=== PATIENT | male | born 2000 | race Caucasian/White ===

== ENCOUNTER 2020-09-08 12:03 | Outpatient (REF) | payer BC, SELFPAY | END 2020-09-08 12:04 | disposition home or self-care (01) | LOC: HO.HMGCLDS 12:03 | PROVIDERS: Visit Provider Internal Medicine | DX: Z20.828 Contact with and (suspected) exposure to other viral communicable diseases (principal) | CPT/HCPCS: C9803; U0003 ==

== ENCOUNTER 2025-01-04 05:03 | Emergency (ER) | payer OTHER, SELFPAY ==
--- NOTE | 2025-01-04 | ECG_ITS ---
Test Reason : CHEST PRESSURE Blood Pressure : */* mmHG Vent. Rate : 94 BPM Atrial Rate : 94 BPM P-R Int : 130 ms QRS Dur : 96 ms QT Int : 338 ms P-R-T Axes : 49 69 29 degrees QTcB Int : 422 ms Normal sinus rhythm Normal ECG No previous ECGs available Referred By: Generic ED Physician Electronically Signed By: CONSTANTINE GRAY MD
[2025-01-04 05:13] VITALS: BP 154/78; PULSE 97; RESP 17; TEMP 37.2; O2SAT 98; BMI 28.0
[2025-01-04 05:36] LABS: MANUAL DIFF FLAG NO
[2025-01-04 05:38] LABS: Basophils Percent Auto 0.4 % (0-2); Eosinophils Absolute Auto 0.1 X10*3/uL (0.0-0.4); Eosinophils Percent Auto 1.1 % (0-4); Hematocrit 45.6 % (42.0-52.0); Hemoglobin 16.6 g/dl (14.0-18.0); Imm Gran Abs Auto 0.02 X10*3/uL (0.00-0.03); Imm Gran Pct Auto 0.3 % (0.0-0.4); Lymphocytes Absolute Auto 2.2 X10*3/uL (1.2-4.9); Lymphocytes Percent Auto 27.4 % (20-40); Mean Corpuscular HGB Conc 36.4 g/dl (31.0-36.0); Mean Corpuscular Hemoglobin 30.5 pg (27.0-33.0); Mean Corpuscular Volume 83.7 fL (80.0-98.0); Mean Platelet Volume 10.7 fL (9.4-12.4); Monocytes Absolute Auto 0.8 X10*3/uL (0.1-1.2); Neutrophils Absolute Auto 4.8 x10*3/uL (2.0-8.3); Neutrophils Percent Auto 60.8 % (45-73); Platelet Count 218 X10*3/uL (160-400); Red Blood Count 5.45 X10*6/uL (4.60-5.80); Red Cell Distribution Width 11.9 % (11.0-16.0); White Blood Count 7.9 X10*3/uL (4.8-10.8)
[2025-01-04 05:54] LABS: Alkaline Phosphatase 69 U/L (39-117); Anion Gap 14 (12-20); Aspartate Amino Transferase 34 U/L (5-37); Bilirubin Total 1.1 mg/dL (0.0-1.0); Blood Urea Nitrogen 11 mg/dL (9-16); Calcium 10.1 mg/dL (8.4-10.2); Carbon Dioxide 21 mmol/L (22-29); Chloride 108 mmol/L (96-108); Creatinine Clr Calc Pharmacy 160.8; Estimated Glomerular Filt Rate > 60; Glucose Random 106 mg/dL (60-115); Potassium 3.9 mmol/L (3.3-5.1); Sodium 139 mmol/L (135-145)
[2025-01-04 05:57] LABS: Troponin-I High Sensitivity < 2.7 ng/L (<3.5-35.0)
[2025-01-04 06:08] LABS: Alanine Aminotransferase 48 U/L (0-40)
--- NOTE | 2025-01-04 09:09 | ED_ITS ---
HPI - Anxiety General Chief Complaint: Anxiety Stated Complaint: anxiety attack few days/feeling chest pressure now Time Seen by Provider: 01/04/25 08:42 Source: patient and family Mode of arrival: ambulatory Limitations: no limitations History of Present Illness ED Provider: Jess Hanson APRN HPI narrative: 24-year-old male with no known medical history presents the ER with complaints of feeling anxious since Monday. Patient reports that he is a senior inpatient nursing aide at [employer] and has been feeling very stressed with his semester ending and finals approaching as well as taking his NCLEX exam. Patient reports that he has had intermittent symptoms of chest tightness, palpitations, hand and feet tingling. He denies any history of anxiety. He is not currently taking any anxiety medications. He denies any associated depression, SI, HI. Patient reports he drinks alcohol 2-3 times weekly. Denies any substance use or tobacco use. Denies any caffeine use. No supplement use. Related Data Previous Rx's ?Medication ?Instructions ?Recorded hydroxyzine HCl 25 mg tablet 25 mg PO QID PRN anxiety #30 tabs 01/04/25 Allergies Allergy/AdvReac Type Severity Reaction Status Date / Time peanut Allergy Anaphylaxis Verified 01/04/25 05:15 tree nut Allergy Anaphylaxis Verified 01/04/25 05:15 Review of Systems 2 Review of Systems: Yes all other systems are reviewed and are negative Constitutional: Constitutional: Reports no additional constitutional complaints, Denies body ache(s), Denies chills, Denies fever(s), Denies headache(s) and Denies weakness Eyes: Eyes: Reports no additional eye complaints and Denies change in vision ENT: Reports system reviewed and no additional complaints, except as documented, Denies dizziness, Denies headache(s), Denies nasal congestion, Denies nasal discharge and Denies neck pain Cardiovascular: Cardiovascular: Reports no additional cardiovascular complaints, Reports chest pain, Denies leg edema, Reports palpitations and Denies dyspnea Respiratory: Respiratory: Reports no additional respiratory complaints, Denies cough and Denies dyspnea Gastrointestinal: Gastrointestinal: Reports no additional gastrointestinal complaints, Denies abdominal pain, Denies diarrhea, Denies nausea and Denies vomiting Genitourinary: Genitourinary: Denies urinary incontinence Musculoskeletal: Musculoskeletal: Reports no additional musculoskeletal complaints, Denies back pain, Denies arthralgias, Denies joint swelling, Denies neck pain, Reports numbness and Reports tingling Integumentary/Breasts: Skin/Breast: Reports system reviewed and no additional complaints, except as docu and Denies rash Neurologic: Reports system reviewed and no additional complaints, except as documented, Denies Abnormal speech present, Denies dizziness, Denies headache(s), Reports numbness, Reports tingling and Denies weakness Psychiatric: Psychiatric: Reports anxiety, Denies depression, Denies homicidal ideation and Denies suicidal ideation Endocrine: Endocrine: Reports palpitations PMFSH Past Medical History Attestation statement: The following information was validated with the patient. Source: old records reviewed and nursing notes reviewed Social History Social History Advance Directives: No Advance Directives Information Provided: Yes Do you have a plan to hurt others: No Plan Physical Exam 2 Vital Signs: Vital Signs: Last Vital Signs Temp 97 F 01/04/25 10:37 Pulse 83 01/04/25 10:37 Resp 12 01/04/25 10:37 BP 150/105 H 01/04/25 10:37 Pulse Ox 97 01/04/25 10:37 O2 Del Method Room Air 01/04/25 05:13 BMI result Body Mass Index 28.0 Const: General: cooperative, healthy appearing, comfortable and no acute distress Orientation/consciousness: patient oriented x3 Limitations: no limitations HEENT: Head: Yes normal to inspection Ears: hearing grossly normal bilaterally General nose exam: Normal external nose present Face and sinus: Yes normal facial exam Mouth: Normal oral and palatal mucosa present Throat: Yes posterior oropharynx normal Eyes: General: appearance normal, both eyes and all related structures P upils: Equal, round and reactive pupils present Neck: Neck: Yes normal visual inspection Chest: Chest palpation & inspection: normal inspection of the chest Resp: Effort & Inspection: normal respiratory effort Auscultation: clear to auscultation bilaterally Cardio: Rate: regular rate Rhythm: regular rhythm Peripheral pulses: P eripheral pulses 2+ throughout GI: Inspection: Yes normal to inspection Palpation (GI): Soft to palpation and nontender Auscultation: normal bowel sounds Back/Spine/Pelvis: Thoracic/Lumbar Spine: thoracic and lumbar spine normal to inspection Skin: General skin exam: no rashes or lesions noted Neuro: General: patient oriented x3, no focal motor deficits and normal sensation to monofilament Cranial nerves: Yes Equal, round and reactive pupils present Cognition (Neuro): normal cognition Speech: No Abnormal speech present Gait exam (Neuro): Normal gait present Motor exam (neuro): 5/5 motor strength present throughout Extrem: General: Yes normal to inspection Medical Decision Making Medical Decision Making [facility] Narrative: This is a 24-year-old male who is previously healthy who has multiple life stressors who presents with several days of chest tightness palpitations and numbness/tingling in his hands and feet. No other complaints. Vitals are stable. Exam is benign Will obtain labs and EKG Differential Diagnosis Differential Diagnoses: The differential diagnosis associated with the presentation includes Adjustment disorder, anxiety Electrolyte abnormality, ACS, thyroiditis Admission/Observation Consideration of admission/observation: Escalation of care including admission/observation considered Lab Data [facility] Lab Attestation statement: I reviewed the patient's lab results. 01/04/25 05:30 01/04/25 05:30 Labs: Lab Results 01/04/25 Range/Units 05:30 WBC 7.9 (4.8-10.8) X10*3/uL RBC 5.45 (4.60-5.80) X10*6/uL Hgb 16.6 (14.0-18.0) g/dl Hct 45.6 (42.0-52.0) % MCV 83.7 (80.0-98.0) fL MCH 30.5 (27.0-33.0) pg MCHC 36.4 H (31.0-36.0) g/dl RDW 11.9 (11.0-16.0) % Plt Count 218 (160-400) X10*3/uL MPV 10.7 (9.4-12.4) fL Immature Gran % (Auto) 0.3 (0.0-0.4) % Neut % (Auto) 60.8 (45-73) % Lymph % (Auto) 27.4 (20-40) % [place] % (Auto) 10.0 (2-11) % Eos % (Auto) 1.1 (0-4) % Baso % (Auto) 0.4 (0-2) % Lymph # (Auto) 2.2 (1.2-4.9) X10*3/uL [place] # (Auto) 0.8 (0.1-1.2) X10*3/uL Eos # (Auto) 0.1 (0.0-0.4) X10*3/uL Baso # (Auto) 0.0 (0.0-0.2) X10*3/uL Abs Immat Gran (auto) 0.02 (0.00-0.03) X10*3/uL Absolute Neuts (auto) 4.8 (2.0-8.3) x10*3/uL Absolute Nucleated RBC 0.000 (0.0-0.012) X10*3/uL Nucleated RBC % (auto) 0.0 (0.0-0.2) /100WBC Sodium 139 (135-145) mmol/L Potassium 3.9 (3.3-5.1) mmol/L Chloride 108 (96-108) mmol/L Carbon Dioxide 21 L (22-29) mmol/L Anion Gap 14 (12-20) BUN 11 (9-16) mg/dL Creatinine 0.77 (0.5-1.4) mg/dL Estim Creat Clear Calc 160.8 Estimated GFR > 60 Random Glucose 106 (60-115) mg/dL Calcium 10.1 (8.4-10.2) mg/dL Total Bilirubin 1.1 H (0.0-1.0) mg/dL AST 34 (5-37) U/L ALT 48 H (0-40) U/L Alkaline Phosphatase 69 (39-117) U/L Troponin I High Sens < 2.7 (<3.5-35.0) ng/L Total Protein 8.0 (6.5-8.0) g/dL Albumin 5.0 (3.5-5.0) g/dL TSH 2.82 (0.32-4.0) uIU/mL Independent Interpretation I performed an independent interpretation of an: EKG Interpretation: I independently viewed the EKG which shows normal sinus rhythm with a rate of 94, normal VT, normal QRS, normal QT Independent Historian Clinical information obtained from an independent historian. History obtained from or confirmed by: Parent Discharge Plan Discharge Clinical Impression: Acute anxiety Patient Disposition: Home, Self-Care Instructions: Anxiety (ED) Additional Instructions: Your blood work was normal. Your EKG is nonischemic You were seen in our Emergency Department today for treatment of a behavioral health issue. It is important after your visit that you follow up with either your behavioral health provider or a primary care doctor within 7 days.? If you have trouble finding a therapist you can reach out to [address] [phone] The National Suicide and Crisis Lifeline can be reached 7 days a week 24 hours a day.? Call 988 to speak with someone.? Return for any worsening symptoms or concerns such as thoughts of self harm or harm to others. Please call 911 if you feel your mental health is worsening.? Prescriptions: New hydroxyzine HCl 25 mg tablet 25 mg PO QID PRN (Reason: anxiety) Qty: 30 0RF Referrals: Physician,Unknown J [Primary Care Provider] - 1 week Stand Alone Forms: Work/School Release Discharge Date/Time: 01/04/25 10:38 Print Language: Chadian
[2025-01-04 10:21] LABS: TSH reflex Free T4 2.82 uIU/mL (0.32-4.0)
[2025-01-04 10:37] VITALS: BP 150/105; PULSE 83; RESP 12; TEMP 36.1; O2SAT 97
== END 2025-01-04 10:38 | disposition home or self-care (01) ==
PROVIDERS: Nurse Practitioner Family; Emergency Provider Internal Medicine
DX: F41.9 Anxiety disorder, unspecified (principal); R07.89 Other chest pain; R20.0 Anesthesia of skin
CPT/HCPCS: 36415; 80053; 84443; 84484; 85025; 93005; 99283

== ENCOUNTER → 2025-01-04 05:08 | Outpatient (BNV) | payer OTHER, SELFPAY | PROVIDERS: Emergency Provider Internal Medicine; Visit Provider Internal Medicine Cardiovascular Disease | DX: R07.89 Other chest pain (principal) | CPT/HCPCS: 93010 ==